=== PATIENT | male | born 1980 | race African-American/Black ===

== ENCOUNTER 2024-02-26 22:05 | Emergency (ER) | payer BC, OTHER ==
[2024-02-27] MEDS ORDERED: Dexamethasone 10 MG/ML VIAL ONE (01:12)
[2024-02-27] MEDS ORDERED: Lidocaine 4% Patch ONE (01:13)
[2024-02-27] MEDS ORDERED: Methocarbamol 500 MG TAB ONE (01:13)
[2024-02-27] MEDS ORDERED: Acetaminophen 500 MG TAB ONE (01:13)
== END 2024-02-27 01:45 | disposition home or self-care (01) ==
LOC: CSHERS 22:05 → EDBD 22:05 → CSHERS 02-27 01:45
DX: M54.16 Radiculopathy, lumbar region (principal); I10 Essential (primary) hypertension
CPT/HCPCS: 96372; 99283; J1100